=== PATIENT | female | born 1990 | race American Indian/Alaskan Native ===

== ENCOUNTER 2019-12-31 17:15 | Emergency (ER) | payer MEDICAID ==
[2019-12-31 19:18] VITALS: BP 148/93
[2019-12-31] MEDS ORDERED: BUTALB/ACETAMINOPHEN/CAFFEINE TAB PO ONE (20:10)
[2019-12-31] MEDS ORDERED: diphenhydrAMINE 25 MG CAP PO ONE (20:10)
[2019-12-31] MEDS ORDERED: predniSONE 20 MG TAB PO ONE (20:10)
[2019-12-31] MEDS ORDERED: FAMOTIDINE 20 MG TAB PO ONE (20:10)
--- NOTE | 2019-12-31 20:56 | Emergency Department Report ---
- General Chief complaint: Skin Rash Stated complaint: FOLLOW UP Time Seen by Provider: 12/31/19 19:57 Source: patient Mode of arrival: Ambulatory Limitations: No Limitations - History of Present Illness Initial comments: Patient is a 29-year-old female presents the emergency room with complaints of an allergic reaction. She states that she washed her hair with a new shampoo 3 days ago. She states she then began to have a diffuse rash. She states that she felt like she was having swelling in the hands and feet. She states that she also has a headache. She has never use this hair product before. She did not take anything for the allergic reaction. She states that she took Goody's for the headache but it did not completely resolve. She denies any vomiting, vision changes, unilateral weakness, shortness of breath. She states that she felt some tingling around the lips but that has since resolved. She states that she also felt a little throat swelling before. Patient is deaf communication through written word, paper faxed into chart - Related Data Home Medications Medication Instructions Recorded Confirmed Last Taken Bactrim DS TAB 1 tab PO BID 07/02/15 07/02/15 07/02/15 Nitrofurantoin Frontier/M-Cryst 100 mg PO BID 07/02/15 07/02/15 07/02/15 Previous Rx's Medication Instructions Recorded Last Taken Type metroNIDAZOLE [Flagyl] 500 mg PO Q12HR #14 tab 09/14/17 Unknown Rx Butalb/Acetaminophen/Caffeine 1 cap PO Q8HR PRN #10 cap 12/31/19 Unknown Rx [Fioricet 50-300-40 mg CAP] Hydrocortisone 0.5% (Nf) 1 applicatio TP TID 7 Days #1 tube 12/31/19 Unknown Rx [Hydrocortisone 0.5% OINT] Prednisone [predniSONE 10 mg 10 mg PO .TAPER #1 tab.ds.pk 12/31/19 Unknown Rx (6-Day Pack, 21 Tabs)] diphenhydrAMINE [Benadryl CAP] 50 mg PO Q8HR PRN #20 capsule 12/31/19 Unknown Rx Allergies Allergy/AdvReac Type Severity Reaction Status Date / Time No Known Allergies Allergy Verified 11/12/14 10:19 Abscess Boil HPI - HPI Chief Complaint: Skin Rash Stated Complaint: FOLLOW UP Time Seen by Provider: 02/13/20 19:57 Home Medications: Home Medications Medication Instructions Recorded Confirmed Last Taken Bactrim DS TAB 1 tab PO BID 07/02/15 07/02/15 07/02/15 Nitrofurantoin Frontier/M-Cryst 100 mg PO BID 07/02/15 07/02/15 07/02/15 Previous Rx's Medication Instructions Recorded Last Taken Type metroNIDAZOLE [Flagyl] 500 mg PO Q12HR #14 tab 09/14/17 Unknown Rx Butalb/Acetaminophen/Caffeine 1 cap PO Q8HR PRN #10 cap 12/31/19 Unknown Rx [Fioricet 50-300-40 mg CAP] Hydrocortisone 0.5% (Nf) 1 applicatio TP TID 7 Days #1 tube 12/31/19 Unknown Rx [Hydrocortisone 0.5% OINT] Prednisone [predniSONE 10 mg 10 mg PO .TAPER #1 tab.ds.pk 12/31/19 Unknown Rx (6-Day Pack, 21 Tabs)] diphenhydrAMINE [Benadryl CAP] 50 mg PO Q8HR PRN #20 capsule 12/31/19 Unknown Rx Allergies/Adverse Reactions: Allergies Allergy/AdvReac Type Severity Reaction Status Date / Time No Known Allergies Allergy Verified 11/12/14 10:19 ED Review of Systems ROS: Stated complaint: FOLLOW UP Other details as noted in HPI Comment: All other systems reviewed and negative ED Past Medical Hx - Past Medical History Hx Hypertension: Yes Additional medical history: currently , pt is deaf - Surgical History Past Surgical History?: No - Social History Smoking Status: Never Smoker Substance Use Type: None - Medications Home Medications: Home Medications Medication Instructions Recorded Confirmed Last Taken Type Bactrim DS TAB 1 tab PO BID 07/02/15 07/02/15 07/02/15 History Nitrofurantoin Frontier/M-Cryst 100 mg PO BID 07/02/15 07/02/15 07/02/15 History metroNIDAZOLE [Flagyl] 500 mg PO Q12HR #14 tab 09/14/17 Unknown Rx Butalb/Acetaminophen/Caffeine 1 cap PO Q8HR PRN #10 cap 12/31/19 Unknown Rx [Fioricet 50-300-40 mg CAP] Hydrocortisone 0.5% (Nf) 1 applicatio TP TID 7 Days #1 tube 12/31/19 Unknown Rx [Hydrocortisone 0.5% OINT] Prednisone [predniSONE 10 mg 10 mg PO .TAPER #1 tab.ds.pk 12/31/19 Unknown Rx (6-Day Pack, 21 Tabs)] diphenhydrAMINE [Benadryl CAP] 50 mg PO Q8HR PRN #20 capsule 12/31/19 Unknown Rx ED Physical Exam - General Limitations: No Limitations General appearance: alert, in no apparent distress - Head Head exam: Present: atraumatic, normocephalic - Eye Eye exam: Present: normal appearance, PERRL, EOMI - ENT ENT exam: Present: normal orophraynx, mucous membranes moist, other (no uvular edema, no uvular deviation, no angioedema, no swelling of the lips, face, around the eyes) - Respiratory Respiratory exam: Present: normal lung sounds bilaterally. Absent: respiratory distress, wheezes, rales, rhonchi, stridor, chest wall tenderness, accessory muscle use, decreased breath sounds, prolonged expiratory - Cardiovascular Cardiovascular Exam: Present: regular rate, normal rhythm, normal heart sounds. Absent: systolic murmur, diastolic murmur, rubs, gallop - Neurological Exam Neurological exam: Present: alert, oriented X3, CN II-XII intact, normal gait. Absent: motor sensory deficit - Psychiatric Psychiatric exam: Present: normal affect, normal mood - Skin Skin exam: Present: warm, dry, other (small urticaria present to the left sided of the face and the back, there is no edema of the hands or feet) ED Course Vital Signs 12/31/19 19:14 Temperature 98.6 F Pulse Rate 87 Respiratory 18 Rate Blood Pressure 148/93 O2 Sat by Pulse 99 Oximetry ED Medical Decision Making - Medical Decision Making Patient is a 29-year-old female presents the emergency room with complaints of an allergic reaction. She states that she washed her hair with a new shampoo 3 days ago. She states she then began to have a diffuse rash. She states that she felt like she was having swelling in the hands and feet. She states that she also has a headache. She has never use this hair product before. She did not take anything for the allergic reaction. She states that she took Goody's for the headache but it did not completely resolve. She denies any vomiting, vision changes, unilateral weakness, shortness of breath. She states that she felt some tingling around the lips but that has since resolved. She states that she also felt a little throat swelling before. Patient is deaf communication through written word, paper faxed into chart VSS on exam: small urticaria present to the left sided of the face and the back, there is no edema of the hands or feet Examination consistent with allergic reaction. Patient given Pepcid, prednisone, Benadryl and symptoms improved. Patient given Fioricet for headache which completely resolved her headache. There is no signs of angioedema, no throat swelling, no stridor. Patient given prescription for prednisone, hydrocortisone cream, Benadryl, Fioricet. advised pt to please use medication as prescribed. Do not use cream on the face for longer than a week. Follow-up with a primary care doctor. Return to the emergency room for any new or worsening symptoms. - Differential Diagnosis allergic reaction, contact derm, irritant derm, scabies, bed bugs Critical care attestation.: If time is entered above; I have spent that time in minutes in the direct care of this critically ill patient, excluding procedure time. ED Disposition Clinical Impression: Allergic reaction Qualifiers: Encounter type: initial encounter Qualified Code(s): T78.40XA - Allergy, unspecified, initial encounter Headache Qualifiers: Headache type: unspecified Headache chronicity pattern: acute headache Intractability: not intractable Qualified Code(s): R51 - Headache Disposition: DC-01 TO HOME OR SELFCARE Is pt being admited?: No Does the pt Need Aspirin: No Condition: Stable Instructions: Urticaria (ED), Acute Headache (ED) Additional Instructions: Please use medication as prescribed. Do not use cream on the face for longer than a week. Follow-up with a primary care doctor. Return to the emergency room for any new or worsening symptoms. Prescriptions: diphenhydrAMINE [Benadryl CAP] 50 mg PO Q8HR PRN #20 capsule PRN Reason: itching Butalb/Acetaminophen/Caffeine [Fioricet 50-300-40 mg CAP] 1 cap PO Q8HR PRN #10 cap PRN Reason: headache Hydrocortisone 0.5% (Nf) [Hydrocortisone 0.5% OINT] 1 applicatio TP TID 7 Days #1 tube Prednisone [predniSONE 10 mg (6-Day Pack, 21 Tabs)] 10 mg PO .TAPER #1 tab.ds.pk Referrals: FORTUNATO OSORIO MD [Staff Physician] - 3-5 Days [facility] [Outside] - 3-5 Days [facility] [Outside] - 3-5 Days Time of Disposition: 20:56 Print Language: KAZAKH
== END 2019-12-31 21:07 | disposition home or self-care (01) ==
LOC: ED 17:15
DX: T78.40XA Allergy, unspecified, initial encounter (principal); R51 Headache; I10 Essential (primary) hypertension; R21 Rash and other nonspecific skin eruption; Y92.89 Other specified places as the place of occurrence of the external cause
CPT/HCPCS: 99282; J7512

== ENCOUNTER 2020-04-17 13:32 | Emergency (ER) | payer MEDICAID ==
[2020-04-17 13:40] VITALS: BP 194/121
--- NOTE | 2020-04-17 14:34 | Emergency Department Report ---
Chief Complaint: Dental/Oral Stated Complaint: TOOTH PAIN Time Seen by Provider: 04/17/20 14:29 - HPI History of Present Illness: 29-year-old -Ind[place]ian female who was just presents to the emergency room complaining of dental pain x2 weeks. Patient states that she was scheduled on Saturday with her dentist but they changed his date to April 19. Patient states she is been taken Tylenol but does not help. Patient does have a braces that she has had on for 9 months. Patient reports she has a dental appointment to take the tooth out May 02 but the pain is worse. She states that she has been brushing her teeth but it does not help. Patient is followed by [facility]. - Exam Vital Signs: Vital Signs 04/17/20 13:38 Temperature 99.2 F Pulse Rate 80 Respiratory 15 Rate Blood Pressure 194/121 O2 Sat by Pulse 99 Oximetry Physical Exam: Alert and oriented x3 appears to be in discomfort. Right upper jaw no swelling no abscess appreciated no drainage no gingiva enlargement no dental carries. Patient does have brackets around her teeth. No swelling to her jaw or face. Patient is ambulatory without difficulties. MSE screening note: Focused history and physical exam performed. Due to findings the following was ordered: 29-year-old -Ind[place]ian female who was just presents to the emergency room complaining of dental pain x2 weeks. Patient states that she was scheduled on Saturday with her dentist but they changed his date to April 19. Patient states she is been taken Tylenol but does not help. Patient does have a braces that she has had on for 9 months. Patient reports she has a dental appointment to take the tooth out May 02 but the pain is worse. She states that she has been brushing her teeth but it does not help. Patient is followed by [facility] [place]. Discussed with patient she can take [id number] ibuprofen 600 mg every 8 hours. I discussed with patient did not wait for the pain to get a 10 take it on a scheduled basis keep her appointment for April 19 with her dentist. ED Disposition for [facility] Disposition: MED SCREENING EXAM-LEFT Is pt being admited?: No Does the pt Need Aspirin: No Condition: Stable Additional Instructions: Take ibuprofen 600 mg every 8 hours on a scheduled basis for the next 3 days. Increase your fluid intake. He can take Tylenol every 4-6 hours while taking ibuprofen as that would help manage her pain. Keep your appointment with your dentist on April 19. Referrals: [facility] [Other] - 3-5 Days [facility] [Outside] - 3-5 Days [facility] [Outside] - 3-5 Days Forms: Work/School Release Form(ED)
== END 2020-04-17 14:46 | disposition left against medical advice (07) ==
LOC: ED 13:32
DX: K08.89 Other specified disorders of teeth and supporting structures (principal); I10 Essential (primary) hypertension; H91.90 Unspecified hearing loss, unspecified ear
CPT/HCPCS: 99281

== ENCOUNTER 2021-01-16 16:57 | Emergency (ER) | payer MEDICAID ==
[2021-01-16 17:55] VITALS: BP 160/115
--- NOTE | 2021-01-16 18:03 | Emergency Department Report ---
ED General Adult HPI - General Chief complaint: Dizziness Stated complaint: VAGINAL DISCHARGE AND ODOR Source: patient Mode of arrival: Ambulatory Limitations: No Limitations - History of Present Illness Initial comments: 30-year-old -Estonian female past no history of hypertension currently out of her losartan presents emerged department complaining of elevated blood pr essure associated with dizziness and and vague chest pain presents emergency department today for evaluation. 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 Location: head Radiation: non-radiation Consistency: constant Improves with: none Worsens with: none Associated Symptoms: denies: confusion, chest pain, cough, loss of appetite, malaise, nausea/vomiting, shortness of breath, syncope Treatments Prior to Arrival: none - Related Data Home Medications Medication Instructions Recorded Confirmed Last Taken Bactrim DS TAB 1 tab PO BID 07/02/15 07/02/15 07/02/15 Nitrofurantoin Mora/M-Cryst 100 mg PO BID 07/02/15 07/02/15 07/02/15 Previous Rx's Medication Instructions Recorded Last Taken Type metroNIDAZOLE [Flagyl] 500 mg PO Q12HR #14 tab 09/14/17 Unknown Rx Butalb/Acetaminophen/Caffeine 1 cap PO Q8HR PRN #10 cap 12/31/19 Unknown Rx [Fioricet 50-300-40 mg CAP] Hydrocortisone 0.5% (Nf) 1 applicatio TP TID 7 Days #1 tube 12/31/19 Unknown Rx [Hydrocortisone 0.5% OINT] Prednisone [predniSONE 10 mg 10 mg PO .TAPER #1 tab.ds.pk 12/31/19 Unknown Rx (6-Day Pack, 21 Tabs)] diphenhydrAMINE [Benadryl CAP] 50 mg PO Q8HR PRN #20 capsule 12/31/19 Unknown Rx Losartan [Cozaar] 25 mg PO QDAY #30 tablet 01/16/21 Unknown Rx Allergies Allergy/AdvReac Type Severity Reaction Status Date / Time No Known Allergies Allergy Verified 01/16/21 17:48 ED Review of Systems ROS: Stated complaint: VAGINAL DISCHARGE AND ODOR Other details as noted in HPI Comment: All other systems reviewed and negative ED Past Medical Hx - Past Medical History Hx Hypertension: Yes Additional medical history: currently , pt is deaf - Social History Smoking Status: Never Smoker Substance Use Type: None - Medications Home Medications: Home Medications Medication Instructions Recorded Confirmed Last Taken Type Bactrim DS TAB 1 tab PO BID 07/02/15 07/02/15 07/02/15 History Nitrofurantoin Mora/M-Cryst 100 mg PO BID 07/02/15 07/02/15 07/02/15 History metroNIDAZOLE [Flagyl] 500 mg PO Q12HR #14 tab 09/14/17 Unknown Rx Butalb/Acetaminophen/Caffeine 1 cap PO Q8HR PRN #10 cap 12/31/19 Unknown Rx [Fioricet 50-300-40 mg CAP] Hydrocortisone 0.5% (Nf) 1 applicatio TP TID 7 Days #1 tube 12/31/19 Unknown Rx [Hydrocortisone 0.5% OINT] Prednisone [predniSONE 10 mg 10 mg PO .TAPER #1 tab.ds.pk 12/31/19 Unknown Rx (6-Day Pack, 21 Tabs)] diphenhydrAMINE [Benadryl CAP] 50 mg PO Q8HR PRN #20 capsule 12/31/19 Unknown Rx Losartan [Cozaar] 25 mg PO QDAY #30 tablet 01/16/21 Unknown Rx ED Physical Exam - General Limitations: No Limitations General appearance: alert, in no apparent distress - Head Head exam: Present: atraumatic, normocephalic - Eye Eye exam: Present: normal appearance, PERRL, EOMI, nystagmus. Absent: scleral icterus, conjunctival injection, periorbital tenderness Pupils: Present: normal accommodation. Absent: irregular - ENT ENT exam: Present: normal exam, normal orophraynx, mucous membranes moist, TM's normal bilaterally - Neck Neck exam: Present: normal inspection, full ROM - Respiratory Respiratory exam: Present: normal lung sounds bilaterally. Absent: respiratory distress, wheezes, rales, chest wall tenderness, accessory muscle use - Cardiovascular Cardiovascular Exam: Present: regular rate, normal rhythm. Absent: systolic murmur, diastolic murmur, rubs, gallop - GI/Abdominal GI/Abdominal exam: Present: soft, normal bowel sounds. Absent: distended, tenderness - Extremities Exam Extremities exam: Present: normal inspection, full ROM, normal capillary refill - Back Exam Back exam: Present: normal inspection. Absent: CVA tenderness (R), CVA tenderness (L) - Neurological Exam Neurological exam: Present: alert, oriented X3, CN II-XII intact - Psychiatric Psychiatric exam: Present: normal affect, normal mood. Absent: manic, homicidal ideation - Skin Skin exam: Present: warm, dry, intact, normal color. Absent: rash, cyanosis, diaphoretic, erythema, urticaria ED Course Vital Signs 01/16/21 17:53 Temperature 98.1 F Pulse Rate 84 Respiratory 20 Rate Blood Pressure 160/115 O2 Sat by Pulse 100 Oximetry ED Medical Decision Making - Radiology Data Radiology results: report reviewed CT scan of the head shows no acute processes(on able to download into the chart due to a computer communication error) - Medical Decision Making This patient presents with a headache most consistent with . Differential diagnosis includes migraine versus tension type headache. No headache red flags. Neurologic exam without evidence of meningismus, focal neurologic findings.Based on the patient's history and physical there is very low clinical suspicion for significant intracranial pathology. The headache was NOT sudden onset, NOT maximal at onset, there are NO neurologic findings, the patient does NOT have a fever, the patient does NOT have any jaw claudication, the patient does NOT endorse a clotting disorder, patient DENIES any trauma or eye pain and the headache is NOT associated with dizziness or ataxia. Presentation not consistent with acute intracranial bleed to include SAH (lack of risk factors, headache history). Presentation not consistent with acute SAT MATH TUTOR infection to include meningitis or brain abscess, Temporal arteritis unlikely, as is acute angle closure glaucoma given history and physical findings. Presentation not consistent with other acute, emergent causes of headache at this time. Plan to treat symptomatically with pain medication. No indication for imaging/LP at this time. Plan: pain medication, CT brain, serial reassessment Critical care attestation.: If time is entered above; I have spent that time in minutes in the direct care of this critically ill patient, excluding procedure time. ED Disposition Clinical Impression: HTN (hypertension), Dizziness, nonspecific Disposition: - TO HOME OR SELFCARE Is pt being admited?: No Does the pt Need Aspirin: No Condition: Stable Instructions: Hypertension (ED), Preventing Hypertension, Dizziness, Hypertension, Adult, [id number], Managing Your Hypertension Additional Instructions: Your CT scan of the head was normal please be sure to get back on your blood pressure medications to help with reduce your hypertension and follow-up with the primary care provider to further evaluate your current medical problems and and better manage your hypertension Prescriptions: Losartan [Cozaar] 25 mg PO QDAY #30 tablet Referrals: ORLANDO FLETCHER MD [Staff Physician] - 3-5 Days
--- NOTE | 2021-01-16 18:24 | Cat Scan Report ---
CT head/brain wo con INDICATION: headache. TECHNIQUE: Routine CT head. All CT scans at this location are performed using CT dose reduction for A MARTY by means of automated exposure control. COMPARISON: None. FINDINGS: Intracranial: Palma-white matter differentiation is maintained. No intracranial hemorrhage. No extra a xial collection. No hydrocephalus. No herniation. Sinuses: Paranasal sinuses and mastoid air cells are essentially clear. Orbits: Globes are intact. Calvarium: No acute fracture. IMPRESSION: 1. No acute intracranial abnormality. Signer Name: Gal Fabian MD Signed: 01/16/2021 6:20 PM Workstation Name: [id number]
== END 2021-01-16 19:24 | disposition home or self-care (01) ==
LOC: ED 16:57
DX: I10 Essential (primary) hypertension (principal); R42 Dizziness and giddiness; Z79.899 Other long term (current) drug therapy
CPT/HCPCS: 70450; 93005